=== PATIENT | male | born 1935 | race Caucasian/White ===

== ENCOUNTER 2016-11-12 10:24 | Outpatient (CLI) | payer MEDICARE, BC ==
[2016-11-12 11:01] LABS: Anion Gap 17 mmol/L (10-20); BUN (Urea Nitrogen) 15 mg/dL (8.4-25.7); Calc. Creatinine Clearance 0 mL/min (70-130); Calcium 9.4 mg/dL (7.8-10.44); Carbon Dioxide 24 mmol/L (23-31); Chloride 105 mmol/L (98-107); Estimated GFR-MDRD 57; Glucose 265 mg/dL (83-110); Potassium 3.5 mmol/L (3.5-5.1); Sodium 142 mmol/L (136-145)
== END 2016-11-12 10:25 | disposition home or self-care (01) ==
LOC: BURLAB 10:24
PROVIDERS: ATTEND Dermatology
DX: E86.0 Dehydration (principal)
CPT/HCPCS: 36415; 80048

== ENCOUNTER 2021-08-07 12:45 | Emergency (ER) | payer OTHER, MEDICARE ==
[2021-08-07] MEDS ORDERED: Lidocaine 1% w/Epinephrine 1:100K 20 ML VIAL ONE (13:36)
== END 2021-08-07 15:39 | disposition left against medical advice (07) ==
LOC: BURERS 12:45
DX: S06.5X0A Traumatic subdural hemorrhage without loss of consciousness, initial encounter (principal); S01.81XA Laceration without foreign body of other part of head, initial encounter; I45.2 Bifascicular block; V59.49XA Driver of pick-up truck or van injured in collision with other motor vehicles in traffic accident, initial encounter
CPT/HCPCS: 12014; 36415; 70450; 71045; 72125; 72170; 80053; 83605; 83690; 85025; 85610; 93005; G0390

== ENCOUNTER 2021-08-07 19:14 | Emergency (ER) | payer OTHER, MEDICARE, BC | END 2021-08-07 20:22 | disposition left against medical advice (07) | LOC: BURERS 19:14 | DX: S06.5X9A Traumatic subdural hemorrhage with loss of consciousness of unspecified duration, initial encounter (principal); I10 Essential (primary) hypertension; V89.2XXA Person injured in unspecified motor-vehicle accident, traffic, initial encounter; Z79.82 Long term (current) use of aspirin; Z79.899 Other long term (current) drug therapy | CPT/HCPCS: 70450 ==